=== PATIENT | male | born 1995 | race Hispanic/Latino ===

== ENCOUNTER 2022-05-27 09:55 | Emergency (ER) | payer BC, OTHER ==
--- OUTSIDE RECORDS SUMMARY | 2022-05-27 09:58 | XMS REPORT | Continuity of Care Document ---
:1995 Author Organization [facility] t Address [address] [place] [address] Care Team Providers Name Role Phone Unknown, Physician Primary Care Physician Unavailable GAIL HOOD Attending Clinician Unavailable Payers Payer Name Policy Type Policy Number Effective Date Expiration Date S matthew [facility] [id number] 2021 00:00:00 Problems Condition Condition Condition Status Onset Resolution Last Treating Co mments Source Name Details Category Date Date Treatment Clinician Date Right knee Right knee Disease Active [facility] pain pain - Health 00:00: 00 Laceration Laceration Disease Active U T of right of right 05-19 Health quadriceps quadriceps 00:00: muscle, muscle, 00 fascia and fascia and tendon, tendon, initial initial encounter encounter Tendon Tendon Disease Active Last UT rupture, rupture, 05-19 Assessmen [facility] nontraumat nontraumat 00:00: t & Plan: ic, ic, 00 Formattin quadriceps quadriceps g of this , left , left note might be different from the original. Plan for physical therapy. Advised on avoiding lower extremity body group weightlif ting initially until starting physical therapy. OTC oral and topical NSAIDs recommend ed - prescript ion sent for Pennsaid. Follow-up in 6 weeks, consider MRI if unimprove d at that time. Gurjit Arrington MD, PGY4 Primary Care Sports Medicine fellow accompani ed me with the consultat ion of this patient visit. Trial of Pennsaid. And follow-up in 6 weeks. Consider MRI of right knee if there is no improveme nt he may return or call our office for imaging if need be but agrees with plan of care. Allergies, Adverse Reactions, Alerts This patient has no known allergies or adverse reactions. Social History Social Habit Start Date Stop Date Quantity Comments Source Alcohol intake 2022-05-19 2022-05-19 Lifetime [facility] 00:00:00 00:00:00 non-drinker (finding) Tobacco use and 2022-05-19 2022-05-19 Smokeless tobacco [facility] exposure 00:00:00 00:00:00 non-user Exposure to 2022-05-08 2022-05-18 Not sure [facility] SARS-CoV-2 (event) 00:00:00 12:33:00 Sex Assigned At [birth year] [facility] 00:00:00 00:00:00 Smoking Status Start Date Stop Date Source Never smoked tobacco [facility] Medications Ordered Filled Start Stop Current Ordering Indication Dosage Frequency Signature Comments Components Source Medication Medication Date Date Medication? Clinician (SIG) Name Name Diclofenac 2021- [id number] 20mg Q.5D Apply 20 [place] Sodium 05-19 [id number] mg [facility] 00:00: 04:59 topically 2 % 00 :00 2 (two) solution times a day. Vital Signs Vital Name Observation Time Observation Value Comments Source Body height 2022-05-19 17:04:00 172.7 [facility] weight 2022-05-19 17:04:00 77[facility]111 [facility] 2022-05-19 17:04:00 [facility] Procedures This patient has no known procedures. Encounters Start End Encounter Admission Attending Care Care Encounter Source Date/Time Date/Time Type Type Clinicians Facility Department ID 2022-05-19 [facility] [id number] [place] 11:42:39 PRADIP, [id number] [facility] 2022-05-18 [facility] [id number] [place] 12:23:27 PRADIP, [id number] [facility] 2022-05-19 2022-05-19 Office Bill [facility] [id number] [place] 12:00:00 13:42:32 Visit CARMINA Mccain [id number] H [facility] [id number] PLA [id number] [phone] Results This patient has no known results.
[2022-05-27 10:36] LABS: Urine Blood Negative (Negative); Urine Glucose Negative (Negative); Urine Protein Negative (Negative); Urine Specific Gravity 1.015 (1.005-1.030); Urine pH 6.5 (5.0-7.0)
[2022-05-27 10:46] LABS: MCV 88.2 fL (80-100); MPV 8.5 fL (7.6-11.3); RBC Red Blood Cell Count 4.87 M/uL (4.33-5.43)
--- NOTE | 2022-05-27 10:46 | RAD REPORT ---
EXAM DESCRIPTION: CT - Stone Protocol - 05/27/2022 10:36 am CLINICAL HISTORY: Abdominal pain. Flank pain COMPARISON: None. TECHNIQUE: Computed axial tomography of the abdomen pelvis was obtained without oral or IV contrast. Lack of IV and oral contrast limits evaluation of solid organs, appendix, bowel, and vessels. Simons l reformatted images were obtained and reviewed. All CT scans are performed using dose optimization technique as appropriate and may include automated exposure control or mA/KV adjustment according to patient size. FINDINGS: A renal calculus is not seen. An ureteral calculus is not noted. A bladder calculus is not present. The liver, spleen, pancreas and adrenals appear grossly normal There is no evidence of diverticulitis. The appendix appears normal IMPRESSION: Negative for a genitourinary calculus
[2022-05-27 11:03] LABS: Albumin 4.2 g/dL (3.4-5.0); Bilirubin Total 0.4 mg/dL (0.2-1.0); Potassium 4.2 mmol/L (3.5-5.1); Protein, Total 7.5 g/dL (6.4-8.2)
--- NOTE | 2022-05-27 12:07 | EDPHYS ---
Physician Documentation [facility] Name: Mars Hernandez Age: 27 yrs Sex: Male : 1995 Arrival Date: 05/27/2022 Time: 09:59 Bed 25 Private MD: ED Physician Nilton Ramirez HPI: 05/27 10:16 This 27 yrs old Male presents to ER via Ambulatory with complaints of jmm Diarrhea, Abdominal Cramping. 10:16 The patient presents to the emergency department with nausea, diarrhea, abdominal pain. jmm Onset: The symptoms/episode began/occurred acutely. This is a 27-year-old male with no chronic medical conditions presents emerged department with complaints of lower abdominal pain which waxes and wanes. Symptoms began after an episode of diarrhea earlier this morning. Patient also complains of nausea but denies vomiting. Patient states the pain was so intense that he was about to call EMS while driving.. Historical: - Allergies: 10:04 No Known Allergies; tw2 - Home Meds: 10:04 None [Active]; tw2 - PMHx: 10:04 None; tw2 - PSHx: 10:04 None; tw2 - Immunization history:: Client reports receiving the 2nd dose of the Covid vaccine. - Social history:: Smoking status: Patient denies any tobacco usage or history of. Patient uses alcohol, occasionally. ROS: 10:16 Constitutional: Negative for fever, chills, and weight loss, Cardiovascular: Negative jmm for chest pain, palpitations, and edema, Respiratory: Negative for shortness of breath, cough, wheezing, and pleuritic chest pain. 10:16 Abdomen/GI: Positive for abdominal pain. 10:16 All other systems are negative. Exam: 10:16 Constitutional: This is a well developed, well nourished patient who is awake, alert, jmm and in no acute distress. Head/Face: atraumatic. Eyes: EOMI, no conjunctival erythema appreciated ENT: Moist Mucus Membranes Neck: Trachea midline, Supple Chest/axilla: Normal chest wall appearance and motion. Cardiovascular: Regular rate and rhythm. No edema appreciated Respiratory: Normal respirations, no respiratory distress appreciated 10:16 Back: Normal ROM Skin: General appearance color normal MS/ Extremity: Moves all extremities, no obvious deformities appreciated, no edema noted to the lower extremities Neuro: Awake and alert Psych: Behavior is normal, Mood is normal, Patient is cooperative and pleasant 10:16 Abdomen/GI: Inspection: abdomen appears normal, Bowel sounds: normal, Palpation: soft, mild abdominal tenderness, in the suprapubic area, right lower quadrant and left lower quadrant. Vital Signs: 10:01 BP 133 / 70; Pulse 56; Resp 17; Temp 97.7(TE); Pulse Ox 100% on R/A; Pain 4/10; tw2 11:35 BP 128 / 76; Pulse 62; Resp 18; Pulse Ox 98% on R/A; Pain 0/10; ph 10:01 "8 when it hit me" tw2 MDM: 10:16 Patient medically screened. [facility] 12:06 Data reviewed: vital signs, nurses notes. Counseling: I had a detailed discussion with libia the patient and/or guardian regarding: the historical points, exam findings, and any diagnostic results supporting the discharge/admit diagnosis, lab results, radiology results, the need for outpatient follow up, to return to the emergency department if symptoms worsen or persist or if there are any questions or concerns that arise at home. ED course: Patient is alert nontoxic in appearance in the ED. No signs of acute intra-abdominal process. Patient's pain is relieved in the ED. Patient advised to follow-up with PCP and otherwise given strict return precautions. Patient understood agrees to plan of care.. 05/27 10:18 Order name: CBC with Diff; Complete Time: 11:05 [facility] 05/27 10:18 Order name: CMP; Complete Time: 11:05 [facility] 05/27 10:18 Order name: Lipase; Complete Time: 11:05 [facility] 05/27 10:18 Order name: IV Saline Lock; Complete Time: 10:35 [facility] 05/27 10:18 Order name: CT Stone Protocol; Complete Time: 11:44 [facility] 05/27 10:36 Order name: Urine Dipstick-Ancillary; Complete Time: 10:37 [facility] 05/27 10:18 Order name: Labs collected and sent; Complete Time: 10:35 [facility] 05/27 10:18 Order name: Urine Dipstick-Ancillary (obtain specimen); Complete Time: 10:35 [facility] Administered Medications: No medications were administered Disposition Summary: 05/27/22 12:06 Discharge Ordered Location: Home jmm Condition: Stable jmm Diagnosis - Diarrhea, unspecified jmm - Lower abdominal pain, unspecified jmm Followup: jmm - With: Private Physician - When: 2 - 3 days - Reason: Recheck today's complaints, Continuance of care, Re-evaluation by your physician Discharge Instructions: - Discharge Summary Sheet jmm - Abdominal Pain, Adult jmm - Diarrhea, Adult jmm Forms: - Medication Reconciliation Form jm - Thank You Letter [facility] - Antibiotic Education [facility] - Prescription Opioid Use [facility] - Work release form aa5 Prescriptions: - dicyclomine 20 mg Oral Tablet - take 1 tablet by ORAL route 3 times per day; 30 tablet; Refills: 0, Product [facility] Selection Permitted - ondansetron 4 mg Oral tablet,disintegrating - take 1 tablet by ORAL route every 4-6 hours As needed; 20 tablet; Refills: 0, jmm Product Selection Permitted Signatures: Dispatcher [employer] Nilton Hardwick MD MD cha Mickail, Joel, PA PA jmm Wise, Tara RN RN tw2
--- NOTE | 2022-05-27 12:07 | ER ---
Nurse's Notes [facility] Name: Mars Hernandez Age: 27 yrs Sex: Male : 1995 Arrival Date: 05/27/2022 Time: 09:59 Bed 25 Private MD: Diagnosis: Diarrhea, unspecified;Lower abdominal pain, unspecified Presentation: 05/27 10:01 Chief complaint: Patient states: probably about 8 am my stomach was bubbling a little tw2 bit. and i noticed as the morning went on i had diarrhea. i am also having some stomach pain and cramps. i was at work so i decided i had to leave. my stomach pain started increasing. the stomach cramps. i stopped at the store and took some pepto bismol. i also felt some pain in my testicle area. Coronavirus screen: At this time, the client does not indicate any symptoms associated with coronavirus-19. Ebola Screen: Patient denies travel to an Ebola-affected area in the 21 days before illness onset. Initial Sepsis Screen: Does the patient meet any 2 criteria? No. Patient's initial sepsis screen is negative. Does the patient have a suspected source of infection? No. Patient's initial sepsis screen is negative. Risk Assessment: Do you want to hurt yourself or someone else? Patient reports no desire to harm self or others. Onset of symptoms was May 27, 2022. 10:01 Method Of Arrival: Ambulatory tw2 10:01 Acuity: ALMA 3 tw2 Triage Assessment: 10:04 General: Appears in no apparent distress. slender, well groomed, Behavior is calm, tw2 cooperative, appropriate for age. Pain: Complains of pain in epigastric area, right upper quadrant and left upper quadrant. GI: Reports upper abdominal pain, cramping, diarrhea. Historical: - Allergies: 10:04 No Known Allergies; tw2 - Home Meds: 10:04 None [Active]; tw2 - PMHx: 10:04 None; tw2 - PSHx: 10:04 None; tw2 - Immunization history:: Client reports receiving the 2nd dose of the Covid vaccine. - Social history:: Smoking status: Patient denies any tobacco usage or history of. Patient uses alcohol, occasionally. Screenin:14 Abuse screen: Denies threats or abuse. Denies injuries from another. Nutritional ph screening: No deficits noted. Tuberculosis screening: No symptoms or risk factors identified. Fall Risk None identified. Assessment: 11:00 General: Appears in no apparent distress. comfortable, slender, well groomed, Behavior ph is calm, cooperative, appropriate for age. Pain: Complains of pain in abdomen and epigastric area. Neuro: Level of Consciousness is awake, alert, obeys commands, Oriented to person, place, time, situation. Cardiovascular: Capillary refill < 3 seconds in bilateral fingers Patient's skin is warm and dry. Respiratory: Airway is patent Respiratory effort is even, unlabored. GI: Abdomen is flat, non-distended, Reports lower abdominal pain, upper abdominal pain, diarrhea. Derm: Skin is intact, is healthy with good turgor, Skin is pink, warm \\T\\ dry. Vital Signs: 10:01 BP 133 / 70; Pulse 56; Resp 17; Temp 97.7(TE); Pulse Ox 100% on R/A; Pain 4/10; tw2 11:35 BP 128 / 76; Pulse 62; Resp 18; Pulse Ox 98% on R/A; Pain 0/10; ph 10:01 "8 when it hit me" tw2 ED Course: 09:59 Patient arrived in ED. rg4 10:02 Arcadio Claros PA is PHCP. jmm 10:02 Nilton Ramirez MD is Attending Physician. jmm 10:04 Triage completed. tw2 10:04 Arm band placed on. tw2 10:11 Bed in low position. Call light in reach. Side rails up X 1. Door closed. Noise mb7 minimized. Warm blanket given. Client placed on continuous cardiac and pulse oximetry monitoring. NIBP monitoring applied. 10:14 Rufina Barrientos, RN is Primary Nurse. ph 10:35 Inserted saline lock: 20 gauge in left antecubital area, using aseptic technique. Blood mb7 collected. 10:35 Lipase Sent. mb7 10:35 CBC with Diff Sent. mb7 10:35 CMP Sent. mb7 10:37 CT Stone Protocol In Process Unspecified. EDMS 12:45 No provider procedures requiring assistance completed. IV discontinued, intact, ph bleeding controlled, No redness/swelling at site. Pressure dressing applied. Administered Medications: No medications were administered Medication: 10:14 VIS not applicable for this client. ph Outcome: 12:06 Discharge ordered by MD. reza 12:45 Discharged to home ambulatory, with significant other. ph 12:45 Condition: good 12:45 Discharge instructions given to patient, Instructed on discharge instructions, follow up and referral plans. medication usage, Demonstrated understanding of instructions, follow-up care, medications, Prescriptions given X 2. 12:46 Patient left the ED. ph Signatures: Dispatcher [employer] EDMS Arcadio Claros PA PA jmm Hall, Patricia, RN RN Valentina Jung RN RN 2 Christianne Llanes 4 Lisette Cox 7 Corrections: (The following items were deleted from the chart) 10:05 10:01 Chief complaint: Patient states: probably about 8 am my stomach was bubbling a tw2 little bit. and i noticed as the morning went on i had diarrhea. i am also having some stomach pain and cramps. i was at work so i decided i had to leave. my stomach pain started increasing. the stomach cramps. i stopped at the store and took some pepto bismol. tw2
[2022-05-27 13:08] VITALS: TEMP 97.7
[2022-05-27 13:18] VITALS: BP 128/76; O2SAT 98
== END 2022-05-27 12:46 | disposition home or self-care (01) ==
LOC: ER 09:55
DX: R19.7 Diarrhea, unspecified (principal)
CPT/HCPCS: 36415; 74176; 76377; 80053; 81003; 83690; 85025